=== PATIENT | female | born 1985 | race Caucasian/White ===

== ENCOUNTER 2020-08-10 09:24 | Emergency (ER) | payer MEDICAID, OTHER ==
[~2020-08-10] VITALS: Ht 152.4 cm; Wt 90.9 kg
[2020-08-10 09:32] VITALS: BP 137/85
[2020-08-10] MEDS ORDERED: hydrOXYzine 25 MG TABLET PO PRN (09:45)
--- NOTE | 2020-08-10 09:45 | PHYS DOC ---
Past Medical History Past Medical History: No Pertinent History Past Surgical History: Tubal ligation Smoking Status: Current Every Day Smoker Alcohol Use: Occasionally Drug Use: None General Adult EDM: Chief Complaint: SKIN RASH/ABSCESS HPI: HPI: Patient is a 34 year old female presents emergency department complaining of a rash problem for the past year. Patient states that she has had a intermittent rash to her right palm for the past year that would come and go however has been constant for the past 2 weeks. Patient states that she has had a rash to her left palm that started a month ago that has been intermittent however has been constant for the past 2 weeks. Patient states that she has had a rash to her right inner foot that has been consistent for the past week. Patient states that she currently sees a inside barrel lathe operator, has prescribed a cream to apply to her skin rashes however she does not feel it works very well. Patient states she does have an appointment to see the same doctor at [facility] tomorrow morning. Patient reports she took 50 mg of Benadryl at 7 AM today without relief of her itching. Patient states the main reason for her coming to the emergency department today is for some relief of her itching. Patient denies any pains. Patient denies any increased thirst or increased urination. Patient denies any recent fever or chills, denies any chest pains, denies shortness of breath, denies chest congestion. Patient denies any nausea vomiting or diarrhea. Patient denies any visual disturbances, denies any diaphoresis. Patient does report that she notices her rash does get worse when she comes in direct contact with water. Review of Systems: Review of Systems: 14 body systems of review of systems have been reviewed. See HPI for pertinent positives and negative responses, otherwise all other systems are negative, nonpertinent or noncontributory. Heart Score: Risk Factors: Risk Factors: DM, Current or recent (<one month) smoker, HTN, HLP, family history of CAD, obesity. Risk Scores: Score 0 - 3: 2.5% MACE over next 6 weeks - Discharge Home Score 4 - 6: 20.3% MACE over next 6 weeks - Admit for Clinical Observation Score 7 - 10: 72.7% MACE over next 6 weeks - Early Invasive Strategies Current Medications: Patient reports that she applies a cream daily prescribed to her by her inside barrel lathe operator but cannot recall the name of the prescription cream. Allergies: Allergies: Patient denies allergies to medications. Allergies Coded Allergies Type Severity Reaction Last Updated Verified No Known Drug Allergies 12/04/13 No Physical Exam: PE: Constitutional: Well developed, well nourished, no acute distress, non-toxic appearance. HENT: Normocephalic, atraumatic, bilateral external ears normal, oropharynx moist, no oral exudates, nose normal. Eyes: PERRLA, EOMI, conjunctiva normal, no discharge. Neck: Normal range of motion, no tenderness, supple, no stridor. Cardiovascular:Heart rate regular rhythm, no murmur Lungs & Thorax: Bilateral breath sounds clear to auscultation Abdomen: Bowel sounds normal, soft, no tenderness, no masses, no pulsatile masses. Skin: Warm, dry, no erythema, patient has rash to right palmar aspect hand large area plaques with minor skin peeling, no purulent drainage appreciated, distal cap refill less than 2 seconds, full passive range of motion without eliciting pain. Left hand palmar aspect large area of plaques with minor skin peeling, no purulent drainage appreciated, distal cap refill less than 2 seconds, full passive range of motion without eliciting pain. There is a 4 cm x 5 cm plaque type rash to right medial aspect foot without purulent drainage, 2+ dorsalis pedis and posterior L tibial pulse, distal cap refill less than 2 seconds, full passive range of motion without eliciting pain. Back: No tenderness, no CVA tenderness. Extremities: No tenderness, no cyanosis, no clubbing, ROM intact, no edema. Neurologic: Alert and oriented X 3, normal motor function, normal sensory function, no focal deficits noted. Psychologic: Affect normal, judgement normal, mood normal. Current Patient Data: Vital Signs: Vital Signs Date Time Temp Pulse Resp B/P (MAP) Pulse Ox O2 Delivery O2 Flow Rate FiO2 08/10/20 09:32 97.9 113 18 137/85 (102) 96 Room Air 97.9 EKG: EKG: [] Radiology/Procedures: Radiology/Procedures: [] Course & Med Decision Making: Course & Med Decision Making Pertinent Labs and Imaging studies reviewed. (See chart for details) 36-year-old female presents emergency department complaining of itching to rash es on bilateral hands and right foot. Patient reports she has been battling these rashes for approximately a year. Patient states she is being seen by sustainability specialist. Patient reports she has a appointment tomorrow morning with her inside barrel lathe operator. Patient's main complaint was itching today. Physical exam revealed atypical type rash of unknown etiology to bilateral palms most likely a psoriasis type rash, rash on right foot is consistent with psoriasis, patient had taken 50 mg of Benadryl p.o. this morning without relief of her itching. Patient was given 25 mg p.o. Vistaril for itching. Discussed with patient will give prescription for p.o. Vistaril for today and tomorrow, she is to discuss with her sustainability specialist tomorrow during appointment if they wish for her to continue taking Vistaril they can write an additional prescription. Patient gave verbal understanding of medication prescription use, discharge home instructions, return to ER cautions and concerns, had no further questions and was discharged home without incident. Impression: #1 Pruritus #2 rash Dragon Disclaimer: Dasha Disclaimer: This electronic medical record was generated, in whole or in part, using a voice recognition dictation system. Departure Departure Impression: Primary Impression: Pruritus Additional Impression: Rash Disposition: 01 DC HOME SELF CARE/HOMELESS Condition: GOOD Referrals: UNKNOWN PCP NAME (PCP) Patient Instructions: Rash Additional Instructions: Please take prescription as directed for itching. Please keep your appointment with your sustainability specialist tomorrow and let them know I have started you on this new medication for itching, I have only given you a few for today and tomorrow so that you may determine if they work or not and your inside barrel lathe operator can consider extending the prescription for a longer period of time. Please return to the emergency department for worsening symptoms or other concerns. Please establish care with a primary care doctor for further evaluation and treatment. EMERGENCY DEPARTMENT GENERAL DISCHARGE INSTRUCTIONS Thank you for coming to [facility] Emergency Department (ED) today and trusting us with you care. We trust that you had a positive experience in our Emergency Department. If you wish to speak to the department management, you may call the Director at [phone]. YOUR FOLLOW UP INSTRUCTIONS ARE FOLLOWS: 1. Do you have a private Doctor? If you do not have a private doctor, please ask for a resource list of physicians or clinics that may be able to assist you with follow up care. 2. The Emergency Physicain has interpreted your x-rays. The X-Ray specialist will also review them. If there is a change in the findings, you will be notified in 48 hours when at all possible. 3. A lab test or culture has been done, your results will be reviewed and you will be notified if you need a change in treatment. ADDITIONAL INSTRUCTIONS AND INFORMATION: 1. Your care today has been supervised by a physician who is specially trained in emergency care. Many problems require more than one evaluation for a complete diagnosis and treatment. We recommend that you schedule your follow up appointment as recommended to ensure complete treatment of you illness or injury. If you are unable to obtain follow up care and continue to have a problem, or if your condition worsens, we recommend that you return to the ED. 2. We are not able to safely determine your condition over the phone nor are we able to give sound medical advice over the phone. For these safety reasons, if you call for medical advice we will ask you to come to the ED for further evaluation. 3. If you have any questions regarding these discharge instructions please call the ED at [phone]. SAFETY INFORMATION: In the interest of safety, wellness, and injury prevention; we encourage you to wear your sealbelt, if you smoke; quite smoking, and we encourage family to use a protective helmet for bicycling and other sporting events that present an increased risk for head injury. IF YOUR SYMPTOMS WORSEN OR NEW SYMPTOMS DEVELOP, OR YOU HAVE CONCERNS ABOUT YOUR CONDITION; OR IF YOUR CONDITION WORSENS WHILE YOU ARE WAITING FOR YOUR FOLLOW UP APPOINTMENT; EITHER CONTACT YOUR PRIMARY CARE DOCTOR, THE PHYSICIAN WHOSE NAME AND NUMBER YOU WERE GIVEN, OR RETURN TO THE ED IMMEDIATELY. Scripts Hydroxyzine Hcl (HYDROXYZINE HCL) 25 Mg Tablet 1 TAB PO TID PRN PRN for ITCHING, #10 TAB 0 Refills Prov: JOYCE GARVEY APRN 08/10/20 JOYCE GARVEY APRN Aug 10, 2020 09:44
[2020-08-10] MEDS ORDERED: HYDR25TA PO (10:04)
== END 2020-08-10 10:12 | disposition home or self-care (01) ==
LOC: ER 09:24
DX: L29.8 Other pruritus (principal); F17.200 Nicotine dependence, unspecified, uncomplicated
CPT/HCPCS: 99283

== ENCOUNTER 2020-10-26 20:32 | Emergency (ER) | payer MEDICAID ==
[~2020-10-26] VITALS: Ht 152.4 cm; Wt 90.0 kg
[~2020-10-26 20:32] MED LIST: HYDR25TA PO
[2020-10-26] MEDS ORDERED: IV NORMAL SALINE 1000ML BAG 1,000 ML IV ONE (21:15)
[2020-10-26] MEDS ORDERED: FAMOTIDINE 20 MG/2 ML VIAL IVP ONE (21:15)
[2020-10-26] MEDS ORDERED: MORPHINE SULFATE 10 MG/ML VIAL. IV ONE ×2 (21:15→22:00)
[2020-10-26] MEDS ORDERED: ONDANSETRON PF 4 MG/2 ML VIAL. IVP ONE (21:15)
[2020-10-26 21:16] LABS: BASO # 0.1 x10^3/uL (0.0-0.2); BASO % 1 % (0-3); EOS # 0.4 x10^3/uL (0.0-0.7); EOS % 4 % (0-3); HEMOGLOBIN 13.6 g/dL (12.0-15.5); LYMPH # 2.9 x10^3/uL (1.0-4.8); LYMPH % 27 % (24-48); MEAN CORPUSCULAR HEMOGLOBIN 30 pg (25-35); MEAN CORPUSCULAR HGB CONC 34 g/dL (31-37); MEAN CORPUSCULAR VOLUME 88 fL (79-100); MONO # 0.8 x10^3/uL (0.0-1.1); MONO % 7 % (0-9); NEUT # 6.4 x10^3/uL (1.8-7.7); NEUT % 60 % (31-73); PLATELET COUNT 294 x10^3/uL (140-400); RED BLOOD COUNT 4.57 x10^6/uL (3.50-5.40); RED CELL DISTRIBUTION WIDTH 13.9 % (11.5-14.5); WHITE BLOOD COUNT 10.7 x10^3/uL (4.0-11.0)
[2020-10-26 21:17] LABS: BILIRUBIN,URINE NEGATIVE (NEG); CLARITY,URINE CLEAR; COLOR,URINE YELLOW; NITRITE,URINE POSITIVE (NEG); PH,URINE 6.5 (<5.0-8.0); PROTEIN,URINE NEGATIVE (NEG-TRACE)
[2020-10-26 21:25] LABS: BACTERIA,URINE MANY /HPF (0-FEW)
[2020-10-26 21:26] LABS: BARBITURATES NEG (NEG); BENZODIAZEPINES NEG (NEG); CANNABINOIDS NEG (NEG); COCAINE NEG (NEG); METHADONE NEG (NEG); OPIATES NEG (NEG); PHENCYCLIDINE NEG (NEG); RBC,URINE 0 /HPF (0-2)
[2020-10-26 21:27] LABS: CALCIUM 8.4 mg/dL (8.5-10.1); CREATININE 0.8 mg/dL (0.6-1.0); GFR 81.6; POTASSIUM 4.2 mmol/L (3.5-5.1)
[2020-10-26 21:30] LABS: AMPHETAMINE/METHAMPHETAMINE NEG (NEG)
[2020-10-26] MEDS ORDERED: IOHEXOL 300 MG/ML 100ML VIAL. IV ONE (21:30)
[2020-10-26 21:39] LABS: ALBUMIN 3.5 g/dL (3.4-5.0); TOTAL BILIRUBIN 0.2 mg/dL (0.2-1.0); TOTAL PROTEIN 7.1 g/dL (6.4-8.2)
[2020-10-26] MEDS ORDERED: CONTRAST GIVEN. MC PRN (21:45)
[2020-10-26] MEDS ORDERED: cefTRIAXone IV Push 1 GM VIAL. IVP ONE (21:45)
[2020-10-26] MEDS ORDERED: CEPH500T PO (21:48)
[2020-10-26] MEDS ORDERED: PHEN100T82 PO (21:48)
[2020-10-26] MEDS ORDERED: NAPR-514 PO (21:48)
[2020-10-26] MEDS ORDERED: PROC10TA57 PO (21:48)
--- NOTE | 2020-10-26 21:49 | PHYS DOC ---
Past Medical History Past Medical History: No Pertinent History, UTI Past Surgical History: Cholecystectomy, Tubal ligation Smoking Status: Current Every Day Smoker Alcohol Use: None Drug Use: None General Adult EDM: Chief Complaint: ABDOMINAL PAIN HPI: HPI: Patient is a 35 year old female with hx of UTI who presents with mild sharp bilateral upper and lower abdominal pain, symptoms began an hour prior to coming to the ED. Patient is also complaining of pressure when voiding as well as nausea with no vomiting. Denies any diarrhea. Denies any fever. Denies any chance she is , she states her tubes are tied Review of Systems: Review of Systems: Constitutional: Denies fever or chills. [] Eyes: Denies change in visual acuity. [] HENT: Denies nasal congestion or sore throat. [] Respiratory: Denies cough or shortness of breath. [] Cardiovascular: Denies chest pain or edema. [] GI: Reports bilateral upper and lower abdominal pain with nausea, denies vomiting, bloody stools or diarrhea. [] : Denies dysuria. [] Musculoskeletal: Denies back pain or joint pain. [] Integument: Denies rash. [] Neurologic: Denies headache, focal weakness or sensory changes. [] Psychiatric: Denies depression or anxiety. [] Heart Score: C/O Chest Pain: N/A Risk Factors: Risk Factors: DM, Current or recent (<one month) smoker, HTN, HLP, family history of CAD, obesity. Risk Scores: Score 0 - 3: 2.5% MACE over next 6 weeks - Discharge Home Score 4 - 6: 20.3% MACE over next 6 weeks - Admit for Clinical Observation Score 7 - 10: 72.7% MACE over next 6 weeks - Early Invasive Strategies Current Medications: Current Medications Medications (Trade) Dose Ordered Sig/Julien Start Time Stop Time Status Last Admin Dose Admin Ceftriaxone Sodium (Rocephin) 1 gm 1X ONCE 10/26/20 21:45 10/26/20 21:46 Famotidine (Pepcid Vial) 20 mg 1X ONCE 10/26/20 21:15 10/26/20 21:16 DC 10/26/20 21:27 20 MG Info (CONTRAST GIVEN -- Rx MONITORING) 1 each PRN DAILY PRN 10/26/20 21:45 10/28/20 21:44 Iohexol (Omnipaque 300 Mg/ml) 75 ml 1X ONCE 10/26/20 21:30 10/26/20 21:32 DC Morphine Sulfate (Morphine Sulfate) 5 mg 1X ONCE 10/26/20 21:15 10/26/20 21:16 DC 10/26/20 21:27 5 MG Ondansetron HCl (Zofran) 4 mg 1X ONCE 10/26/20 21:15 10/26/20 21:16 DC 10/26/20 21:27 4 MG Sodium Chloride 1,000 ml @ 1,000 mls/hr 1X ONCE 10/26/20 21:15 10/26/20 22:14 10/26/20 21:27 1,000 MLS/HR Allergies: Allergies: Allergies Coded Allergies Type Severity Reaction Last Updated Verified No Known Drug Allergies 12/04/13 No Physical Exam: PE: Constitutional: Well developed, well nourished, no acute distress, non-toxic appearance. [] HENT: Normocephalic, atraumatic, bilateral external ears normal, oropharynx moist, no oral exudates, nose normal. [] Eyes: PERRLA, EOMI, conjunctiva normal, no discharge. [] Neck: Normal range of motion, no tenderness, supple, no stridor. [] Cardiovascular:Heart rate regular rhythm, no murmur [] Lungs & Thorax: Bilateral breath sounds clear to auscultation [] Abdomen: Rounded abdomen. Bowel sounds normal, soft, diffuse tenderness throughout the abdomen with negative psoas sign, negative obturator sign, negative Rovsing sign, negative Porter sign, no masses, no pulsatile masses. [] Skin: Warm, dry, no erythema, no rash. [] Back: No tenderness, no CVA tenderness. [] Extremities: No tenderness, no cyanosis, no clubbing, ROM intact, no edema. [] Neurologic: Alert and oriented X 3, normal motor function, normal sensory function, no focal deficits noted. [] Psychologic: Affect normal, judgement normal, mood normal. [] Current Patient Data: Labs: Laboratory Tests Test 10/26/20 20:40 10/26/20 20:45 10/26/20 21:05 POC Urine HCG, Qualitative Hcg negative (Negative) Urine Collection Type Unknown Urine Color Yellow Urine Clarity Clear Urine pH 6.5 (<5.0-8.0) Urine Specific [place] 1.025 (1.000-1.030) Urine Protein Negative mg/dL (NEG-TRACE) Urine Glucose (UA) Negative mg/dL (NEG) Urine Ketones (Stick) Negative mg/dL (NEG) Urine Blood Negative (NEG) Urine Nitrite Positive (NEG) Urine Bilirubin Negative (NEG) Urine Urobilinogen Dipstick 1.0 mg/dL (0.2 mg/dL) Urine Leukocyte Esterase Negative (NEG) Urine RBC 0 /HPF (0-2) Urine WBC 1-4 /HPF (0-4) Urine Squamous Epithelial Cells Many /LPF Urine Bacteria Many /HPF (0-FEW) Urine Mucus Slight /LPF Urine Opiates Screen Neg (NEG) Urine Methadone Screen Neg (NEG) Urine Barbiturates Neg (NEG) Urine Phencyclidine Screen Neg (NEG) Urine Amphetamine/Methamphetamine Neg (NEG) Urine Benzodiazepines Screen Neg (NEG) Urine Cocaine Screen Neg (NEG) Urine Cannabinoids Screen Neg (NEG) Urine Ethyl Alcohol (NEG) White Blood Count 10.7 x10^3/uL (4.0-11.0) Red Blood Count 4.57 x10^6/uL (3.50-5.40) Hemoglobin 13.6 g/dL (12.0-15.5) Hematocrit 40.0 % (36.0-47.0) Mean Corpuscular Volume 88 fL (79-100) Mean Corpuscular Hemoglobin 30 pg (25-35) Mean Corpuscular Hemoglobin Concent 34 g/dL (31-37) Red Cell Distribution Width 13.9 % (11.5-14.5) Platelet Count 294 x10^3/uL (140-400) Neutrophils (%) (Auto) 60 % (31-73) Lymphocytes (%) (Auto) 27 % (24-48) Monocytes (%) (Auto) 7 % (0-9) Eosinophils (%) (Auto) 4 % (0-3) H Basophils (%) (Auto) 1 % (0-3) Neutrophils # (Auto) 6.4 x10^3/uL (1.8-7.7) Lymphocytes # (Auto) 2.9 x10^3/uL (1.0-4.8) Monocytes # (Auto) 0.8 x10^3/uL (0.0-1.1) Eosinophils # (Auto) 0.4 x10^3/uL (0.0-0.7) Basophils # (Auto) 0.1 x10^3/uL (0.0-0.2) Sodium Level 142 mmol/L (136-145) Potassium Level 4.2 mmol/L (3.5-5.1) Chloride Level 105 mmol/L (98-107) Carbon Dioxide Level 27 mmol/L (21-32) Anion Gap 10 (6-14) Blood Urea Nitrogen 12 mg/dL (7-20) Creatinine 0.8 mg/dL (0.6-1.0) Estimated GFR (Cockcroft-Gault) 81.6 BUN/Creatinine Ratio 15 (6-20) Glucose Level 95 mg/dL (70-99) Calcium Level 8.4 mg/dL (8.5-10.1) L Total Bilirubin Pending Aspartate Amino Transferase (AST) Pending Alanine Aminotransferase (ALT) Pending Alkaline Phosphatase Pending Total Protein Pending Albumin Pending Albumin/Globulin Ratio Pending Lipase Pending Ethyl Alcohol Level < 10 mg/dL (0-10) Laboratory Tests 10/26/20 21:05 Laboratory Tests 10/26/20 21:05 Vital Signs: Vital Signs Date Time Temp Pulse Resp B/P (MAP) Pulse Ox O2 Delivery O2 Flow Rate FiO2 10/26/20 21:27 98 10/26/20 20:46 98.8 119 18 132/91 (105) Room Air 98.8 EKG: EKG: [] Radiology/Procedures: Radiology/Procedures: [] Course & Med Decision Making: Course & Med Decision Making Pertinent Labs and Imaging studies reviewed. (See chart for details) This is a 35-year-old female patient presenting to the ED today with generalized abdominal pain and nausea that began an hour ago. CBC, CMP with no acute findings, urine positive for UTI, started on Rocephin in the ED as well as IV fluids. Patient is afebrile. Discharged on cephalexin. Also given Pyridium prescription and instructed to push fluids. Provided return precautions and discharged in stable condition Dragon Disclaimer: Dragon Disclaimer: This electronic medical record was generated, in whole or in part, using a voice recognition dictation system. Departure Departure Impression: Primary Impression: Urinary tract infection Qualified Codes: N30.00 - Acute cystitis without hematuria Additional Impressions: Generalized abdominal pain Nausea Disposition: DC HOME SELF CARE/HOMELESS Condition: STABLE Referrals: UNKNOWN PCP NAME (PCP) follow up with your doctor in one week Patient Instructions: Urinary Tract Infection Additional Instructions: You were seen for abdominal pain and noted to have urinary tract infection. Please complete your prescribed antibiotics. Please push fluids. You were given prescription for Pyridium which will also help with your symptoms. You can also take Tylenol/Motrin for pain or fever. Follow-up with your doctor in 1 to 2 weeks. Come back to the ED at any point symptoms worsen. Scripts Prochlorperazine Maleate (Compazine) 10 Mg Tablet 1 TAB PO Q6HRS PRN for NAUSEA, #20 TAB 0 Refills Prov: WILLIAM ZAMBRANO APRN 10/26/20 Phenazopyridine Hcl (PYRIDIUM) 100 Mg Tablet 1 TAB PO TID for urinary discomfort for 2 Days, #6 TAB 0 Refills Prov: WILLIAM ZAMBRANO APRN 10/26/20 Naproxen (NAPROXEN) 500 Mg Tablet 1 TAB PO BID for pain, #20 TAB 0 Refills Prov: WILLIAM ZAMBRANO APRN 10/26/20 Cephalexin (CEPHALEXIN) 500 Mg Tablet 1 TAB PO BID, #14 TAB Prov: WILLIAM ZAMBRANO APRN 10/26/20 WILLIAM ZAMBRANO APRN Oct 26, 2020 21:48
[2020-10-26] MEDS ORDERED: KETOROLAC 30 MG/ML VIAL. IVP ONE (22:00)
[2020-10-26 22:24] VITALS: BP 124/74
== END 2020-10-26 22:25 | disposition home or self-care (01) ==
LOC: ER 20:32
DX: N30.00 Acute cystitis without hematuria (principal); R10.84 Generalized abdominal pain; R11.0 Nausea; F17.200 Nicotine dependence, unspecified, uncomplicated; Z90.49 Acquired absence of other specified parts of digestive tract; Z98.51 Tubal ligation status
CPT/HCPCS: 36415; 80053; 80307; 81001; 81025; 83690; 85025; 87086; 96361; 96374; 96375; 99284; G0480; J0696; J1885; J2270; J2405; J3490; J7030

== ENCOUNTER 2021-09-23 11:39 | Emergency (ER) | payer MEDICAID, OTHER ==
[~2021-09-23] VITALS: Ht 160 cm; Wt 79.5 kg
[~2021-09-23 11:39] MED LIST changes: +CEPH500T PO; +NAPR-514 PO; +PHEN100T82 PO; +PROC10TA57 PO
[2021-09-23] MEDS ORDERED: DEXAMETHASONE 4 MG TABLET PO ONE (12:15)
[2021-09-23] MEDS ORDERED: IV NORMAL SALINE 1000ML BAG 1,000 ML IV ONE ×2 (12:45→14:15)
--- NOTE | 2021-09-23 13:23 | RAD ---
EXAM: XR CHEST 1V 09/23/2021 1:05 PM CLINICAL INDICATION: Cough COMPARISON: Chest radiograph 05/17/2013 TECHNIQUE: AP upright view of the chest FINDINGS: The heart and mediastinum are normal. Lungs are well-expanded and clear. No consolidatio n, pleural effusion, or pneumothorax. Pulmonary vascularity is normal. The thoracic skeleton is int act. IMPRESSION: Normal chest radiograph. Electronically signed by: Lidia Walker MD (09/23/2021 1:20 PM) [id number]
--- NOTE | 2021-09-23 13:28 | PHYS DOC ---
Past Medical History Past Medical History: No Pertinent History, UTI Past Surgical History: Cholecystectomy, Tubal ligation Smoking Status: Current Every Day Smoker Alcohol Use: None Drug Use: None General Adult EDM: Chief Complaint: SORE THROAT HPI: HPI: 35-year-old female past medical history of tobacco dependence, presents the ED with complaints of sore throat, productive cough, chills and loose stool, stating her throat hurts such that she can't smoke cigarettes due to the pain. Symptoms have been present for the past 2 days. Is not vaccinated for Covid. Has not tested positive for Covid. Review of Systems: Review of Systems: Constitutional: Denies fever or malaise Eyes: Denies change in visual acuity. [] HENT: Denies nasal congestion or rhinorrhea Respiratory: Denies hemoptysis or shortness of breath. [] Cardiovascular: Denies chest pain or edema. [] GI: Denies nausea or vomiting : Denies dysuria or vaginal bleeding Musculoskeletal: Denies back pain or joint pain. [] Integument: Denies rash or diaphoresis Neurologic: Denies headache, focal weakness or sensory changes. [] Endocrine: Denies polyuria or polydipsia. [] Lymphatic: Denies swollen glands. [] Psychiatric: Denies depression or anxiety. [] Heart Score: C/O Chest Pain: No Risk Factors: Risk Factors: DM, Current or recent (<one month) smoker, HTN, HLP, family history of CAD, obesity. Risk Scores: Score 0 - 3: 2.5% MACE over next 6 weeks - Discharge Home Score 4 - 6: 20.3% MACE over next 6 weeks - Admit for Clinical Observation Score 7 - 10: 72.7% MACE over next 6 weeks - Early Invasive Strategies Current Medications: Current Medications Medications (Trade) Dose Ordered Sig/Julien Start Time Stop Time Status Last Admin Dose Admin Dexamethasone (Decadron) 10 mg 1X ONCE 09/23/21 12:15 09/23/21 12:16 DC 09/23/21 12:15 10 MG Sodium Chloride 1,000 ml @ 1,000 mls/hr 1X ONCE 09/23/21 12:45 09/23/21 13:44 09/23/21 13:22 1,000 MLS/HR Allergies: Allergies: Allergies Coded Allergies Type Severity Reaction Last Updated Verified No Known Drug Allergies 12/04/13 No Physical Exam: PE: Constitutional: Well developed, well nourished, no acute distress, non-toxic appearance. HENT: Normocephalic, atraumatic, pharyngeal erythema with no exudates, moist mucous membrane Eyes: EOMI, conjunctiva normal, no discharge. Neck: Normal range of motion, supple, Cardiovascular: S1/2 present, tachycardic Lungs & Thorax: Speaking in full sentences, bilateral equal chest rise, no tachypnea or increased work of breathing, hoarse voice, no stridor, expiratory wheezing present Abdomen: soft, no tenderness, Skin: Warm, dry, no erythema, no rash. [] Extremities: No tenderness, no cyanosis, Neurologic: Alert and oriented X 3, normal motor function, normal sensory function, no focal deficits noted. [] Psychologic: Affect normal, judgement normal, mood normal-very appreciative and thankful for her care Current Patient Data: Labs: Laboratory Tests Test 09/23/21 12:00 SARS-CoV-2 Antigen (Rapid) Negative (NEGATIVE) Group A Streptococcus Rapid Negative (NEGATIVE) Vital Signs: Vital Signs Date Time Temp Pulse Resp B/P (MAP) Pulse Ox O2 Delivery O2 Flow Rate FiO2 09/23/21 12:04 97.9 114 18 132/82 (99) 99 Room Air 97.9 EKG: EKG: [] Radiology/Procedures: Radiology/Procedures: IMAGING REPORT Signed PATIENT: JOSE DANIEL LICEA RACCOUNT: [id number] : 1985 LOCATION: ER AGE: 35 SEX: F EXAM STATUS: REG ER ORD. PHYSICIAN: SHANKAR MONTEZ DO REASON: cough PROCEDURE: CHEST AP ONLY EXAM: XR CHEST 1V 09/23/2021 1:05 PM CLINICAL INDICATION: Cough COMPARISON: Chest radiograph 05/17/2013 TECHNIQUE: AP upright view of the chest FINDINGS: The heart and mediastinum are normal. Lungs are well-expanded and clear. No consolidation, pleural effusion, or pneumothorax. Pulmonary vascularity is normal. The thoracic skeleton is intact. IMPRESSION: Normal chest radiograph. Electronically signed by: Lidia Walker MD (09/23/2021 1:20 PM) [id number] DICTATED and SIGNED BY: LIDIA WALKER MD DATE: 09/23/21 [id number] IMAGING REPORT Signed PATIENT: JOSE DANIEL LICEA RACCOUNT: [id number] : 1985 LOCATION: ER AGE: 35 SEX: F EXAM STATUS: REG ER ORD. PHYSICIAN: SHANKAR MONTEZ DO REASON: sore throat, hoarseness PROCEDURE: CT SOFT TISSUE NECK W/CONTRAST CT NECK SOFT TISSUE WITH IV CONTRAST DATE: 09/23/2021 2:15 PM INDICATION: sore throat, hoarseness TECHNIQUE: Axial computed tomography of the neck with intravenous contrast according to the standard neck protocol. One or more of the following dose reduction techniques were utilized: Automated exposure control (AEC), Adjustment of mA and/or kV according to patient size, Use of iterative mickey nstruction technique such as ASiR, CT scan done according to ALARA and image gently/image wisely COMPARISON: None. FINDINGS: Enlarged adenoids, palatine tonsils, and lingual tonsils. No tonsillar abscess. No retropharyngeal collection. No epiglottic thickening. Bilateral cervical lymphadenopathy. The parotid, submandibular, and thyroid glands are normal. The muscles of the neck are normal. Vessels of the neck demonstrate normal course, caliber, and enhancement. The visualized posterior fossa and brain is unremarkable. The visualized orbits and paranasal sinuses are normal. The cervical spine is normal. The visualized lung apices are clear. IMPRESSION: 1. Enlarged adenoids, palatine tonsils, and lingual tonsils. No tonsillar abscess. No retropharyngeal collection. No epiglottic thickening. 2. Bilateral cervical lymphadenopathy, likely reactive. Electronically signed by: Paulette Sharma MD (09/23/2021 2:53 PM) [id number] DICTATED and SIGNED BY: PAULETTE SHARMA MD DATE: 09/23/21 [id number] Course & Med Decision Making: Course & Med Decision Making Pertinent Labs and Imaging studies reviewed. (See chart for details) COVID-19 CRITERIA: The patient was evaluated during the global COVID-19 pandemic, and that diagnosis was suspected/considered upon their initial presentation. Their evaluation, treatment and testing was consistent with current guidelines for patients who present with complaints or symptoms that may be related to COVID-19. Concern for URI with tonsillar enlargement on CT imaging. Patient's lung exam significant improved after breathing treatments and steroids. Patient's labs unremarkable. Unable to PERC out due to tachycardia on arrival-I suspect this was related to dehydration and resolved after IV fluids. D-dimer is within normal limits. Low suspicion for DVT given clinical exam-no swelling, no hemoptysis, no hypoxia. Patient's cough and sore throat improved after ED treatment. Patient was very appreciative of her care. Will discharge home with strict ED return precautions were given for chest pain, worsening shortness of breath, increased work of breathing, syncope or neurologic deficits. Encouraged urgent outpatient follow-up with PMD for reevaluation, consider pulmonology evaluation for COPD diagnosis/pulmonary function testing. Life-threatening processes were considered but are low suspicion at this time, given history, physical exam and ED workup. Pt was educated on all prescription medications and adverse effects. All patient's questions were answered and pt was stable at time of discharge. Life/limb-threatening differential includes but is not limited to, j carlos's angina, peritonsillar abscess, retropharyngeal abscess, epiglottitis, bacterial tracheitis, uvulitis, sepsis, mastoiditis, traumatic injury, carotid/vertebral dissection, meningitis/encephalitis, intracranial aneurysms or neurologic process. I have spoken with the patient and/or caregivers. I explained the patient's condition, diagnoses and treatment plan based on the information available to me at this time. I have answered the patient and/or caregiver's questions and addressed any concerns. The patient and/or caregivers have a good understanding of patient's diagnosis, condition and treatment plan as can be expected at this point. Vital signs have been stable. Patient's condition is stable and appropriate for discharge from the emergency department. Patient will pursue further outpatient evaluation with primary care physician or other designated or consulting physician as outlined in the discharge instructions. The patient and/or caregivers are agreeable to this plan of care and follow-up instructions have been explained in detail. The patient and/or caregivers have received these instructions in written form and have expressed an understanding of the discharge instructions. The patient and/or caregivers are aware that any significant change of condition or worsening of symptoms should prompt immediate return to this or the closest emergency department or call to 911. Dasha Disclaimer: Dasha Disclaimer: This electronic medical record was generated, in whole or in part, using a voice recognition dictation system. Departure Departure Impression: Primary Impression: Acute pharyngitis Additional Impression: Tobacco use Disposition: 01 HOME / SELF CARE / HOMELESS Condition: STABLE Referrals: NO PCP (PCP) Follow-up with your primary care physician in 1-2 weeks for re-evaluation OR FOLLOW UP WITH FAMILY MEDICINE: [address] [place] [address] Patient Instructions: Chronic Obstructive Pulmonary Disease, Viral Pharyngitis Additional Instructions: FOLLOW UP WITH PULMONOLOGY: FOR DEFINITIVE MANAGEMENT of tobacco use/copd testing/management [facility] [address] [place] [address] EMERGENCY DEPARTMENT GENERAL DISCHARGE INSTRUCTIONS Thank you for coming to Emergency Department (ED) today and trusting us with you care. We trust that you had a positive experience in our Emergency Department. If you wish to speak to the department management, you may call the Director at [phone]. YOUR FOLLOW UP INSTRUCTIONS ARE FOLLOWS: 1. Do you have a private Doctor? If you do not have a private doctor, please ask for a resource list of physicians or clinics that may be able to assist you with follow up care. 2. The Emergency Physicain has interpreted your x-rays. The X-Ray specialist will also review them. If there is a change in the findings, you will be notified in 48 hours when at all possible. 3. A lab test or culture has been done, your results will be reviewed and you will be notified if you need a change in treatment. ADDITIONAL INSTRUCTIONS AND INFORMATION: 1. Your care today has been supervised by a physician who is specially trained in emergency care. Many problems require more than one evaluation for a complete diagnosis and treatment. We recommend that you schedule your follow up appointment as recommended to ensure complete treatment of you illness or injury. If you are unable to obtain follow up care and continue to have a problem, or if your condition worsens, we recommend that you return to the ED. 2. We are not able to safely determine your condition over the phone nor are we able to give sound medical advice over the phone. For these safety reasons, if you call for medical advice we will ask you to come to the ED for further evaluation. 3. If you have any questions regarding these discharge instructions please call the ED at [phone]. SAFETY INFORMATION: In the interest of safety, wellness, and injury prevention; we encourage you to wear your sealbelt, if you smoke; quite smoking, and we encourage family to use a protective helmet for bicycling and other sporting events that present an increased risk for head injury. IF YOUR SYMPTOMS WORSEN OR NEW SYMPTOMS DEVELOP, OR YOU HAVE CONCERNS ABOUT YOUR CONDITION; OR IF YOUR CONDITION WORSENS WHILE YOU ARE WAITING FOR YOUR FOLLOW UP APPOINTMENT; EITHER CONTACT YOUR PRIMARY CARE DOCTOR, THE PHYSICIAN WHOSE NAME AND NUMBER YOU WERE GIVEN, OR RETURN TO THE ED IMMEDIATELY. Scripts Albuterol Sulfate (VENTOLIN HFA INHALER) 18 Gm Hfa.aer.ad 2 PUFF INH QID for FOR ASTHMA, #1 INHALER 0 Refills Prov: SHANKAR MONTEZ DO 09/23/21 Prednisone (PREDNISONE) 50 Mg Tablet 1 TAB PO DAILY, #5 TAB Prov: SHANKAR MONTEZ DO 09/23/21 SHANKAR MONTEZ DO Sep 23, 2021 13:28
[2021-09-23 13:37] LABS: BASO % 1 % (0-3); EOS # 0.2 x10^3/uL (0.0-0.7); EOS % 4 % (0-3); HEMATOCRIT 41.5 % (36.0-47.0); HEMOGLOBIN 13.7 g/dL (12.0-15.5); LYMPH # 2.1 x10^3/uL (1.0-4.8); LYMPH % 40 % (24-48); MEAN CORPUSCULAR HEMOGLOBIN 28 pg (25-35); MEAN CORPUSCULAR HGB CONC 33 g/dL (31-37); MEAN CORPUSCULAR VOLUME 86 fL (79-100); MONO # 0.7 x10^3/uL (0.0-1.1); MONO % 13 % (0-9); NEUT # 2.2 x10^3/uL (1.8-7.7); NEUT % 43 % (31-73); PLATELET COUNT 225 x10^3/uL (140-400); RED BLOOD COUNT 4.84 x10^6/uL (3.50-5.40); RED CELL DISTRIBUTION WIDTH 14.7 % (11.5-14.5); WHITE BLOOD COUNT 5.2 x10^3/uL (4.0-11.0)
[2021-09-23 13:45] LABS: CALCIUM 8.3 mg/dL (8.5-10.1); CREATININE 0.7 mg/dL (0.6-1.0); GFR 95.2; POTASSIUM 4.4 mmol/L (3.5-5.1)
[2021-09-23 13:51] LABS: ALBUMIN 3.6 g/dL (3.4-5.0); ALBUMIN/GLOBULIN RATIO 1.1 (1.0-1.7); TOTAL BILIRUBIN 0.2 mg/dL (0.2-1.0); TOTAL PROTEIN 6.9 g/dL (6.4-8.2)
[2021-09-23] MEDS ORDERED: IOHEXOL 300 MG/ML 100ML VIAL. IV ONE (14:15)
[2021-09-23] MEDS ORDERED: CONTRAST GIVEN. MC PRN (14:30)
[2021-09-23 14:36] VITALS: BP 139/90
--- NOTE | 2021-09-23 14:55 | RAD ---
CT NECK SOFT TISSUE WITH IV CONTRAST DATE: 09/23/2021 2:15 PM INDICATION: sore throat, hoarseness TECHNIQUE: Axial computed tomography of the neck with intravenous contrast according to the standard neck protocol. One or more of the following dose reduction techniques were utilized: Automated expos ure control (AEC), Adjustment of mA and/or kV according to patient size, Use of iterative reconstruct ion technique such as ASiR, CT scan done according to ALARA and image gently/image wisely COMPARISON: None. FINDINGS: Enlarged adenoids, palatine tonsils, and lingual tonsils. No tonsillar abscess. No retropharyngeal co llection. No epiglottic thickening. Bilateral cervical lymphadenopathy. The parotid, submandibular, and thyroid glands are normal. The mu scles of the neck are normal. Vessels of the neck demonstrate normal course, caliber, and enhancement . The visualized posterior fossa and brain is unremarkable. The visualized orbits and paranasal sinuses are normal. The cervical spine is normal. The visualized lung apices are clear. IMPRESSION: 1. Enlarged adenoids, palatine tonsils, and lingual tonsils. No tonsillar abscess. No retropharyngeal collection. No epiglottic thickening. 2. Bilateral cervical lymphadenopathy, likely reactive. Electronically signed by: Tino Sharma MD (09/23/2021 2:53 PM) [id number]
[2021-09-23] MEDS ORDERED: IPRATRPIUM/ALBUTEROL 0.5/2.5MG 3 ML NEBU. NEB ONE (15:45)
[2021-09-23] MEDS ORDERED: PRED50TA PO (15:47)
[2021-09-23] MEDS ORDERED: VENTOLIN HFA18 GM INH (15:47)
== END 2021-09-23 16:29 | disposition home or self-care (01) ==
LOC: ER 11:39
DX: J02.9 Acute pharyngitis, unspecified (principal); Z72.0 Tobacco use; Z20.822 Contact with and (suspected) exposure to COVID-19; R05.9 Cough, unspecified; R19.7 Diarrhea, unspecified
CPT/HCPCS: 36415; 70491; 71045; 80053; 85025; 85379; 87070; 87426; 87880; 94640; 96360; 96361; 99285; J7030; Q9967